=== PATIENT | female | born 1955 | race Caucasian/White ===

== ENCOUNTER 2025-04-09 01:23 | Day surgery (SDC) | payer MEDICARE, SELFPAY ==
[2025-03-28 08:30] VITALS: BMI 27.2
[2025-04-09 06:35] VITALS: BP 120/73; PULSE 67; RESP 18; TEMP 36.1; O2SAT 100; BMI 25.9
[2025-04-09] MEDS: LACTATED RINGERS 1,000 ML 150 ML IV CONT (06:46)
--- NOTE | 2025-04-09 07:01 | WPDANESEPPF ---
Anes - Initial Pre Proc Eval Procedure: Operation Date: 04/09/25 08:00 Proposed Procedures p Screening Colonoscopy - Ariel Jefferson MD Date/Time: 04/09/25 07:01 Surgeon: Ariel Jefferson MD Pre Op Diagnosis: Encounter for screening for malignant neoplasm of Patient Data Age: 69 Gender: F Height: 1.57 m Weight: 64.5 kg Last Vital Signs Temp 36.1 C L 04/09/25 06:35 Pulse 67 04/09/25 06:35 Resp 18 04/09/25 06:35 BP 120/73 04/09/25 06:35 Pulse Ox 100 04/09/25 06:35 O2 Del Method Room Air 04/09/25 06:35 Allergies Allergy/AdvReac Type Severity Reaction Status Date / Time No Known Allergies Allergy Verified 04/09/25 06:34 Home Medications ?Medication ?Instructions ?Recorded ?Confirmed ?Type ascorbate calcium (vitamin C) 500 500 mg PO DAILY PRN supplement 11/15/24 04/09/25 History mg tablet cholecalciferol (vitamin D3) 25 25 mcg PO DAILY PRN supplement 11/15/24 04/09/25 History mcg (1,000 unit) chewable tablet (Vitamin D3) Patient hx anesthesia problems: none Family hx anesthesia problems: none Results Review: All pre-operative results and documents have been reviewed as part of the pre-operative evaluation. [facility] Past Medical History Medical History (Updated 11/15/24 @ 08:43 by Catherine Bee NP) HX: breast cancer 2022 Surgical History Surgical History (Updated 11/15/24 @ 07:56 by Alessia Amaya CMA) History of 3 sections H/O partial mastectomy Family History Family History (Updated 11/15/24 @ 07:47 by Alessia Amaya CMA) Father Malignant neoplasm of prostate Social History Social History (Updated 11/15/24 @ 07:57 by Alessia Amaya CMA) Years smoked: 10 Smoking status: Former smoker Tobacco type: cigarettes Additional smoking assessment comments: QUIT AGE 27 Alcohol intake: current Drinks per week: 2 Alcohol use details: WINE Substance use: never Substance use type: does not use Current Housing: Decline to Answer Concerned About Future Housing: Decline to Answer Difficulty Paying Gas/Electric Bills: Decline to Answer Difficulty Paying for Meds: Decline to Answer Currently Unemployed: Decline to Answer Education: Decline to Answer Difficulty w/ Childcare or Family Care: Decline to Answer Living arrangements: with family Occupation/Education: retired Gender identity (if verbalized by the patient): Female Spiritual care concerns: No Agree to blood products: Yes Anes - Eval Final PreProcedure Day of Procedure 04/09/25 07:01 Patient weight: overweight Heart: regular rate and rhythm Lungs: clear to auscultation Airway: Mallampati scale class II Neurological: alert and oriented Last oral intake: >/= 8 hours ASA classification: II Emergent: no Anesthetic plan: proceed Anesthesia type and monitoring: general GIVS and standard monitoring Results Review: All pre-operative results and documents have been reviewed as part of the pre-operative evaluation. Informed Consent: The patient's anesthetic plan and its attendant risks and benefits were discussed with the patient/family/POA. Questions were solicited and answers provided to the satisfaction of the patient/family/POA.
--- NOTE | 2025-04-09 07:40 | PM.HPGS ---
History of Present Illness History of Present Illness Consent: Risks, benefits, and alternatives have been discussed and questions answered. Patient agrees to proceed with procedure. Chief complaint: Encounter for screening for malignant neoplasm of Narrative: Nena Steen is a 69 year old female here for screening colonoscopy, last one 12 years ago Review of Systems Review of Systems: All systems reviewed & are unremarkable except as noted in HPI and below PMFSH Past Medical History Medical History (Updated 11/15/24 @ 08:43 by Catherine Bee NP) HX: breast cancer 2022 Surgical History Surgical History (Updated 11/15/24 @ 07:56 by Alessia Amaya [facility]) History of 3 sections H/O partial mastectomy Family History Family History (Updated 11/15/24 @ 07:47 by Alessia Amaya CMA) Father Malignant neoplasm of prostate Social History Social History (Updated 11/15/24 @ 07:57 by Alessia Amaya [facility]) Years smoked: 10 Smoking status: Former smoker Tobacco type: cigarettes Additional smoking assessment comments: QUIT AGE 27 Alcohol intake: current Drinks per week: 2 Alcohol use details: WINE Substance use: never Substance use type: does not use Current Housing: Decline to Answer Concerned About Future Housing: Decline to Answer Difficulty Paying Gas/Electric Bills: Decline to Answer Difficulty Paying for Meds: Decline to Answer Currently Unemployed: Decline to Answer Education: Decline to Answer Difficulty w/ Childcare or Family Care: Decline to Answer Living arrangements: with family Occupation/Education: retired Gender identity (if verbalized by the patient): Female Spiritual care concerns: No Agree to blood products: Yes Meds Home Medications and Allergies Home Medications ?Medication ?Instructions ?Recorded ?Confirmed ?Type ascorbate calcium (vitamin C) 500 500 mg PO DAILY PRN supplement 11/15/24 04/09/25 History mg tablet cholecalciferol (vitamin D3) 25 25 mcg PO DAILY PRN supplement 11/15/24 04/09/25 History mcg (1,000 unit) chewable tablet (Vitamin D3) Allergies Allergy/AdvReac Type Severity Reaction Status Date / Time No Known Allergies Allergy Verified 04/09/25 06:34 Vital Signs Vital Signs - 24 hr 04/09/25 06:35 Temperature 97 F L Pulse Rate 67 Respiratory Rate 18 Blood Pressure 120/73 Pulse Oximetry 100 Oxygen Delivery Room Air Exam Const: General: comfortable and no acute distress HENMT: Face/Nose/Sinus: Normal nares present Eyes: General: appearance normal, both eyes and all related structures Neck: Neck: no JVD Resp: Auscultation: clear to auscultation bilaterally Cardio: Rate: regular rate Rhythm: regular rhythm GI: Inspection: non-distended GI Palp: Yes Soft to palpation Skin: General skin exam: normal color Neuro: Speech: normal speech Extrem: General: normal to inspection Psych: Mental Status: mental status grossly normal Assessment and Plan Assessment and plan (1) Screening for colon cancer: Code(s): Z12.11 - Encounter for screening for malignant neoplasm of colon Status: Acute Assessment and Plan: colonoscopy
[2025-04-09 07:58] VITALS: BP 104/61; PULSE 56; RESP 17; O2SAT 97
[2025-04-09 08:08] VITALS: BP 116/65; PULSE 55; RESP 20; O2SAT 100
[2025-04-09 08:18] VITALS: BP 121/74; PULSE 56; RESP 20; O2SAT 100
== END 2025-04-09 08:28 | disposition home or self-care (01) ==
PROVIDERS: PCP Nurse Practitioner; Referring Provider Nurse Practitioner; Visit Provider Internal Medicine Gastroenterology
PROC: 0DJD8ZZ Inspection of Lower Intestinal Tract, Via Natural or Artificial Opening Endoscopic (ICD-10-PCS; CPT 45378; principal; 2025-04-09 08:00)
DX: Z12.11 Encounter for screening for malignant neoplasm of colon (principal); K57.30 Diverticulosis of large intestine without perforation or abscess without bleeding; K64.8 Other hemorrhoids
CPT/HCPCS: G0121; J2704; J7120

== ENCOUNTER 2025-05-13 13:49 | Outpatient (CLI) | payer MEDICARE, SELFPAY ==
--- NOTE | ~2025-05-13 | US_ITS ---
Clinical history:Other intra-abdominal and pelvic swelling, mass. Right mons pubis aoc EXAM:Ultrasound soft tissue swelling right TECHNIQUE:Multiple static grayscale images and color images were obtained of the area of concern in the right mon pubis. Comparisons:None available FINDINGS: There is a 2.9 x 2.1 cm heterogeneous masslike structure in the area of concern about the right mon pubis. IMPRESSION: 1.There is an indeterminate 2.9 x 2.1 cm heterogeneous masslike structure in the area of concern about the right mon pubis. A CT of the pelvis with contrast is recommended for further assessment. Reviewed, dictated and finalized at location Q. IMPRESSION: 1.There is an indeterminate 2.9 x 2.1 cm heterogeneous masslike structure in th e area of concern about the right mon pubis. A CT of the pelvis with contrast i s recommended for further assessment.
== END 2025-05-13 13:50 | disposition home or self-care (01) ==
LOC: GOSHIMG 13:49
PROVIDERS: PCP Nurse Practitioner; Visit Provider Nurse Practitioner
DX: R19.09 Other intra-abdominal and pelvic swelling, mass and lump (principal); R93.89 Abnormal findings on diagnostic imaging of other specified body structures
CPT/HCPCS: 76882

== ENCOUNTER 2025-06-08 07:54 | Outpatient (CLI) | payer MEDICARE, SELFPAY ==
--- NOTE | ~2025-06-08 | CT_ITS ---
EXAMINATION: CT pelvis w con DATE: 06/08/2025 08:15 INDICATION: Other intra-abdominal and pelvic swelling. TECHNIQUE: Computed tomography (CT) of the pelvis was performed with 100 mL Omnipaque 350 intravenous contrast. Automated exposure control and iterative reconstruction technique were employed. The dose-length product was 217.43 mGy-cm. COMPARISON: Ultrasound 05/13/2025 FINDINGS: There are no dilated loops of bowel. The periuterine veins and ovarian veins are enlarged, consistent with pelvic venous insufficiency. There are bilateral inguinal hernias containing fat. There are no pathologically enlarged lymph nodes. There is no ascites. There is mild lumbar spondylosis. IMPRESSION: 1. Bilateral inguinal hernias containing fat. 2. Pelvic venous insufficiency. Reviewed, dictated and finalized at location E. [facility]ER
[2025-06-08 08:11] LABS: Estimated Glomerular Filt Rate 49
== END 2025-06-08 07:55 | disposition home or self-care (01) ==
PROVIDERS: PCP Nurse Practitioner; Visit Provider Nurse Practitioner
DX: K40.20 Bilateral inguinal hernia, without obstruction or gangrene, not specified as recurrent (principal); I87.2 Venous insufficiency (chronic) (peripheral)
CPT/HCPCS: 72193; Q9967